=== PATIENT | male | born 1975 | race Caucasian/White ===

== ENCOUNTER 2024-08-14 09:39 | Inpatient (IN) | payer MEDICAID, OTHER ==
[~2024-08-14] VITALS: Ht 167.6 cm; Wt 60.6 kg
[~2024-08-14 09:39] MED LIST: FOLI1TAB27 PO; MULT-1179 PO; THI100T PO
--- NOTE | 2024-08-14 09:57 | ELECTROCARDIOGRAPH REPORT ---
[facility] Test Date: 2024-08-14 Test Time: 09:53:24 Pat Name: KELLEY SRIVASTAVA Department: EMERGENCY ROOM Room: Gender: M Team Leader Surgery: : 1975 Requested By: ROSEMARIE RATLIFF Order Number: [id number] Reading MD: Measurements Intervals [place] Rate: 93 P: 73 AL: 131 QRS: 48 QRSD: 94 T: -82 QT: 356 QTc: 443 Interpretive Statements Sinus rhythm LVH with secondary repolarization abnormality Baseline wander in lead(s) V6 Please click the below link to view image of tracing.
[2024-08-14 10:24] LABS: BASOPHILS # (AUTO) 0.1 X10'3 (0-0.2); BASOPHILS % (AUTO) 0.8 % (0-1); EOSINOPHILS # (AUTO) 0.3 X10'3 (0-0.9); EOSINOPHILS % (AUTO) 3.4 % (0-6); HEMATOCRIT 43.7 % (42.0-52.0); HEMOGLOBIN 14.7 g/dl (14.0-17.9); LYMPHOCYTES # (AUTO) 1.8 X10'3 (1.1-4.8); LYMPHOCYTES % (AUTO) 21.3 % (21-51); MEAN CORPUSCULAR HEMOGLOBIN 28.3 PG (27.0-31.0); MEAN CORPUSCULAR HGB CONC 33.5 g/dL (33.0-36.5); MEAN CORPUSCULAR VOLUME 84.5 FL (78-98); MEAN PLATELET VOLUME 7.4 FL (7.4-10.4); MONOCYTES # (AUTO) 0.7 X10'3 (0-0.9); MONOCYTES % (AUTO) 8.4 % (2-12); NEUTROPHILS # (AUTO) 5.5 X10'3 (1.8-7.7); NEUTROPHILS % (AUTO) 66.1 % (42-75); PLATELET COUNT 329 X10'3 (140-440); RED BLOOD COUNT 5.17 X10'6 (4.70-6.10); RED CELL DISTRIBUTION WIDTH 14.5 % (11.5-14.5); WHITE BLOOD COUNT 8.2 X10'3 (4.5-11.0)
--- NOTE | 2024-08-14 10:26 | RADIOLOGY REPORT ---
EXAM: DI CHEST,SINGLE VIEW HISTORY: CP COMPARISON: None TECHNIQUE: Portable upright AP view of the chest was performed. FINDINGS: No pneumothorax, consolidative infiltrates, or pulmonary edema. The heart is borderline enlarged. The re is moderate thoracic degenerative disc disease. There is mild lower thoracic dextroscoliosis. IMPRESSION: No acute intrathoracic process.
--- NOTE | 2024-08-14 10:41 | Physician Documentation ---
History of Present Illness ~ Chief Complaint: Hypertension Stated Complaint: HIGH BLOOD PRESSURE Time Seen by MD: 10:06 Primary Medical Doctor: [facility] Mode of Arrival: POV HPI 49-year-old male history of methamphetamine use presenting for chest pain. He reports waking with tightness in his chest and difficulty taking a deep breath. He is 8 days sober from methamphetamine use. He also reports his blood pressure is elevated is work. His symptoms are slowly improving in her nearly resolved at this time Medication Reconciliation Allergies: Coded Allergies: Sulfa (Sulfonamide Antibiotics) (Verified Allergy, Unknown, 08/23/16) Scheduled Folic Acid* (Folic Acid*), 2 MG PO DAILY Multivitamins,Therapeutic* (Theragran-M*), 1 EACH PO DAILY Thiamine Hcl (Thiamine Hcl), 100 MG PO DAILY Past Medical History Past Medical History: Asthma Past Surgical History: orthopedic surgeries Review of Systems All Other Systems at this time: Reviewed and Negative Constitutional: Denies: fever Physical Exam Vital Signs: RN Vital Signs have been reviewed: Yes, Temperature: 97.5, Heart Rate: 80, Respiratory Rate: 17, BP: 165/118, Pulse Oximetry: 99, Weight: 49.000 Physical Exam Well-appearing no distress resting comfortably in bed No JVD Moist mucous membranes Pulmonary clear to auscultation bilaterally Cardiac no murmur Abdomen is soft nontender Lower extremity no edema Awake alert oriented Progress Progress Note Labs independently interpreted show elevated troponin Consulted hospitalist who agrees with management plan and graciously accept for admission Results/Orders Reviewed/noted all lab results: Yes Results/Orders Orders - TERRELL MILLS MD Nitroglycerin Sublingual Tab (Nitrostat (08/14/24 10:50) Ringers Solution, Lacted (Lactated Ringe (08/14/24 10:50) Pt Inr (08/14/24 10:48) PTT (08/14/24 10:48) Heparin 10,000 Unit/Ml 1ml (Heparin 10,0 (08/14/24 10:50) Heparin 25,000 Unit/250ml Bag (Heparin 2 (08/14/24 10:50) Heparin 10,000 Unit/Ml 1ml (Heparin 10,0 (08/14/24 10:50) Page Hospitalist (08/14/24 10:48) Fill Out Med Reconciliation (08/14/24 10:48) Drug Screen, Urine (08/14/24 10:51) Completed Orders - TERRELL MILLS MD Aspirin 81mg Chew Tablet (Aspirin 81mg C (08/14/24 10:50) Vital Signs 08/14/24 08/14/24 09:51 10:16 Temp 97.5 Pulse 80 Resp 15 17 B/P (MAP) 165/118 Pulse Ox 99 Laboratory Tests Test 08/14/24 10:08 White Blood Count 8.2 Red Blood Count 5.17 Hemoglobin 14.7 Hematocrit 43.7 Mean Corpuscular Volume 84.5 Mean Corpuscular Hemoglobin 28.3 Mean Corpuscular Hemoglobin Concent 33.5 Red Cell Distribution Width 14.5 Platelet Count 329 Mean Platelet Volume 7.4 Neutrophils (%) (Auto) 66.1 Lymphocytes (%) (Auto) 21.3 Monocytes (%) (Auto) 8.4 Eosinophils (%) (Auto) 3.4 Basophils (%) (Auto) 0.8 Neutrophils # (Auto) 5.5 Lymphocytes # (Auto) 1.8 Monocytes # (Auto) 0.7 Eosinophils # (Auto) 0.3 Basophils # (Auto) 0.1 CBC Comment Sodium Level 142 Potassium Level 4.4 Chloride Level 105 Carbon Dioxide Level 30.1 Anion Gap 7 L Blood Urea Nitrogen 13 Creatinine 0.97 Estimated GFR/1.73 m2 82 BUN/Creatinine Ratio 13.4 Glucose Level 106 H Calcium Level 8.9 Troponin I High Sensitivity 105 *H Pro-B-Type Natriuretic Peptide 380 H Albumin 3.6 Chemistry Comments EKG/XRAY/CT/US/VASC/MRI EKG : Additional Comment EKG independently interpreted by myself time 9:53 a.m. indication chest pain lateral ST depressions normal sinus rhythm rate 93 normal axis left ventricular hypertrophy Heart Score: Heart Score Response (Comments) Value History Moderate Suspicious [address]-Deviation 2 Age 45-64 1 Risk Factors No known risk factors 0 Troponin 1-2 x's Normal limit 1 Total 5 Medical Decision Making Additional Information Acute coronary syndrome, pulmonary embolism, pneumonia Departure Disposition: ADMITTED INPATIENT Admitted to Inpatient Unit: to hospitalist Impression: Primary Impression: NSTEMI (non-ST elevated myocardial infarction) Referrals: NO PRIMARY CARE PROVIDER (PCP) Critical Care Note Total Time (mins): 30 Critical Care Note The very real possibility of a deterioration of this patient's condition required the highest level of my preparedness for sudden, emergent intervention. I provided critical care services, which included medication orders, frequent reevaluations of the patient's condition and response to treatment, ordering and reviewing test results, and discussing the case with various consultants. Excludes time spent performing separately billable procedures. The critical care time associated with the care of the patient was 30 minutes in the acute management of NSTEMI Signature Scribe Signature: pablo Attestation: TERRELL Mehta MD Aug 14, 2024 10:41
[2024-08-14 10:45] LABS: ALBUMIN 3.6 G/DL (3.4-5.0); ANION GAP 7 (8-16); BLOOD UREA NITROGEN 13 MG/DL (7-18); BUN/CREATININE RATIO 13.4 (10.0-20.0); CALCIUM 8.9 MG/DL (8.5-10.1); CHLORIDE 105 MMOL/L (99-107); CREATININE 0.97 MG/DL (0.60-1.10); GLUCOSE 106 MG/DL (70-104); POTASSIUM 4.4 MMOL/L (3.5-5.1); PRO BRAIN NATRIURETIC PEPTIDE 380 PG/ML (0-125); SODIUM 142 MMOL/L (135-145); TOTAL CARBON DIOXIDE 30.1 MMOL/L (24-32); eCRCL 63 ML/MIN; eGFR 82 ML/MIN
[2024-08-14] MEDS ORDERED: nitroGLYCERIN 0.4mg SUBLingual tab SL PRN ×3 (10:50→19:20)
[2024-08-14] MEDS ORDERED: HYDROcodone/acetaminophen 5mg/325mg tablet PO PRN (11:10)
[2024-08-14] MEDS ORDERED: bisacodyl 10mg suppository rectal RC PRN (11:10)
[2024-08-14] MEDS ORDERED: HYDROmorphone inj. 0.5 MG/0.5 ML DISP.SYRIN IV PRN (11:10)
[2024-08-14] MEDS ORDERED: magnesium Cl slow-release 64mg tablet PO PRN (11:10)
[2024-08-14] MEDS ORDERED: ondansetron/PF 4mg/2ml inj IV PRN (11:10)
[2024-08-14] MEDS ORDERED: potassium Cl 40MEQ/1/2NS 520ml 520 ML IV PRN (11:10)
[2024-08-14] MEDS ORDERED: morphine 2 MG/ML inj. syringe IV PRN (11:10)
[2024-08-14] MEDS ORDERED: magnesium sulf-water 4G/100mL 100 ML IV PRN (11:10)
[2024-08-14] MEDS ORDERED: acetaminophen 325mg tablet PO PRN (11:10)
[2024-08-14] MEDS ORDERED: potassium Cl 20 mEq SR tablet PO PRN ×2 (11:10)
[2024-08-14] MEDS ORDERED: HYDROmorphone/PF 0.2 MG/ML SYRINGE IV PRN (11:10)
[2024-08-14] MEDS ORDERED: mag hydrox/Alum hydrox/simeth 30ml oral suspension PO PRN (11:10)
[2024-08-14] MEDS ORDERED: HYDROcodone/acetaminophen 10/325mg tab PO PRN (11:10)
[2024-08-14] MEDS ORDERED: magnesium hydroxide 30ml (MOM) UD suspension PO PRN (11:10)
[2024-08-14] MEDS ORDERED: magnesium sulf-water 2g/50mL 50 ML IV PRN (11:10)
[2024-08-14] MEDS: aspirin 81mg tab.chew PO ONE (11:24)
[2024-08-14] MEDS: ringers solution, lacted 1,000 ML IV ONE (11:24)
[2024-08-14] MEDS: labetalol 20mg/4ml (5mg/ml) syringe IV ONE (11:26)
[2024-08-14] MEDS: MESSAGE TO NURSING IV ONE ×2 (11:40→20:44)
[2024-08-14 11:45] LABS: APTT 26 SECONDS (22-32); PROTHROMBIN TIME 9.8 SECONDS (9.0-12.0)
[2024-08-14] MEDS: heparin 25,000 UNIT/250ml bag 250 ML IV PRN (11:48)
[2024-08-14] MEDS: heparin 10,000 units/1 ML INJ IV ONE (11:51)
[2024-08-14 11:53] LABS: HEMOGLOBIN A1C 5.2 % (4.5-6.2)
--- NOTE | 2024-08-14 12:30 | CONSULTATION REPORT ---
History of Present Illness Providers to CC CC: LAN SEQUEIRA MD ~ Reason for Admit\Admit Dx: Cardiology consultation Refering MD: JEAN History of Present Illness This is a 49-year-old male who presents secondary to chest pain. Patient reports chest tightness in the center of his chest starting at 9:00 a.m. that was nonradiating. Describes shortness for breath when he ambulated to the hospital which is unusual for him. Blood pressure running high. Reports regular methamphetamine use usually by smoking it. He was using regularly till about two weeks ago when he went into a rehabilitation program. Last use was about seven days ago. Reports IV use in the past. Denies any past cardiac history. EKG was read as ST depression and cardiology consultation was requested secondary to ST depression and minimally elevated troponins. Allergies: Coded Allergies: Sulfa (Sulfonamide Antibiotics) (Verified Allergy, Unknown, 08/23/16) Home Medications Home Medications Active Theragran-M* (Multivitamins Therapeutic) 1 Each Tablet 1 Each PO DAILY Thiamine Hcl 100 Mg Tablet 100 Mg PO DAILY Folic Acid 1 Mg Tablet 2 Mg PO DAILY Past Medical History Medical History Comment Asthma Past Surgical History Surgical History Comment Orthopedic Past Family History Family History Comment Both his mother and father had hypertension. Reports siblings are healthy. Unknown if any [place] family history. Thinks mother had congestive heart failure. Past Social History Social History Comment History of tobacco use from age [age]. History of meth use. History of IV meth use in the past with the last IV use one year ago. History of alcohol use. In the past he drank up to three shots per day. Physical Exam Last Vital Signs Recorded: RN Vital Signs have been reviewed: Yes, Temperature: 97.5, Heart Rate: 80, Respiratory Rate: 17, BP: 165/118, Pulse Oximetry: 99, Weight: 49.000 Physical Exam General: Awake, alert, oriented. No apparent distress Neck: Supple. Normal range of motion. No JVD Respiratory: Lungs are clear to auscultation bilaterally. No respiratory distress. Chest: Normal shape and size. No accessory muscle use. Cardiovascular: Regular rate and rhythm. S1-S2. No murmur, gallop, rub. Gastrointestinal: Abdomen is soft. Nontender to palpation. Bowel sounds present. Extremities: No lower extremity edema, cyanosis or clubbing. Neurologic: Alert and oriented x4. Nonfocal Psychiatric: Normal mood and affect. Skin: Normal color. Warm and dry. Review of Systems ROS Review of systems negative except documented in HPI. Results EKG EKG Sinus rhythm rate of 93. LVH with repolarization abnormalities causing ST depression. Diagram Lab Result Diagram: 08/14/24 1008 08/14/24 1008 Assessment/Plan Additional Plan This is a 49-year-old male who presented with chest pain. The following is his problem list: Chest pain Minimally elevated troponin with possible NSTEMI. --needs echocardiogram to assess LV function and LV wall thickness --trend troponins --heparin for 48 hours --aspirin 81 mg daily --start beta-yamini --check lipids. Statin to keep LDL less than 55 Hypertension Not on medications --consider addition of lisinopril if blood pressure remains elevated Methamphetamine use disorder Risks of methamphetamine use reviewed in detail. Encouraged to quit. Consultation was requested secondary to ST depression and minimally elevated troponins. EKG has ST depression that is caused from repolarization abnormality with LVH. Please see above. Case discussed with Dr. Sequeira. Supervising MD Supervising Physician: DAYRON Campbell NP Aug 14, 2024 12:30
[2024-08-14 12:42] LABS: BILIRUBIN,URINE NEGATIVE (Neg); CLARITY,URINE CLEAR (Clear); COLOR,URINE YELLOW (Yellow); GLUCOSE, URINE NEGATIVE (Neg); KETONES,URINE NEGATIVE (Neg); LEUKOCYTE ESTERASE ,URINE NEGATIVE (Neg); NITRITES, URINE NEGATIVE (Neg); OCCULT BLOOD,URINE NEGATIVE (Neg); PH,URINE 6.5 (4.8-8.0); PROTEIN,URINE NEGATIVE (Neg); UROBILINOGEN,URINE 0.2 E.U/dL (0.2-1.0)
[2024-08-14 12:49] LABS: UA COLLECTION TYPE CLN CATCH MIDSTREAM
[2024-08-14 12:51] LABS: URINE AMPHETAMINE SCREEN NEGATIVE (Neg); URINE BARBITUATE SCREEN NEGATIVE (Neg); URINE BENZODIAZEPINES SCREEN NEGATIVE (Neg); URINE CANNABINOID SCREEN POSITIVE (Neg); URINE COCAINE SCREEN NEGATIVE (Neg); URINE METHADONE SCREEN NEGATIVE (Neg); URINE OPIATE SCREEN NEGATIVE (Neg); URINE PHENCYCLIDINE SCREEN NEGATIVE (Neg)
[2024-08-14] MEDS ORDERED: NO HOME MEDS (13:41)
[2024-08-14 14:15] VITALS: BP 141/93; PULSE 68; RESP 16; TEMP 97.9; O2SAT 99
[2024-08-14 18:00] VITALS: BP 132/87; PULSE 70; RESP 20; TEMP 98.6; O2SAT 98
--- NOTE | 2024-08-14 19:15 | HISTORY AND PHYSICAL-Residence ---
History & Physical Providers to CC Resident Creating Document: JULIETTE BARRAGAN, RES ~ History of Present Illness Primary Medical Doctor: [facility] Reason for Admit\Complaint: Chest pain History of Present Illness This is a 49-year-old male with a history of methamphetamine abuse last use eight days ago, asthma, hypertension presents to the ED with a chief complaint of tightness in the chest. Patient mentions that his chest pain is in the sternal area, nonradiating, started in the morning is associated with shortness of Breath. He denies any orthopnea, PND, palpitations, syncopal episodes. He denies any history of heart failure does not follow mechanical design technician. ED course: EKG shows sinus rhythm with repolarization abnormalities suggestive of LVH, ST-depression in lateral leads V5 V6. He received IV labetalol 20 mg in one LR, 324 mg aspirin and nitroglycerin. He was also started on heparin drip for NSTEMI Allergies: Coded Allergies: Sulfa (Sulfonamide Antibiotics) (Verified Allergy, Unknown, 08/23/16) Home Medications Home Medications Active Reported No Home Medications (Home Med List) Each Past Medical History Past Medical History Asthma Past Surgical History Surgical History Comment Orthopedic surgeries Family History Family History: FH: cancer MOTHER, FH: hypertension FATHER, , Cause: Head injury Past Social History Social History Comment Family history significant for high blood pressure in mother and father. Denies history of heart attacks in family. CHF in mother Smoked for about 10 years. History of both IV and smoking methamphetamine in the past. Drinks alcohol up to three shots per day but quit now. ROS All Other Systems: Reviewed and Negative ROS Reviewed and negative except for the pertinent positives in HPI Constitutional: Denies: fever Exam Vitals: Vital Signs Date Time Temp Pulse Resp B/P (MAP) Pulse Ox O2 Delivery O2 Flow Rate FiO2 08/14/24 14:21 59 08/14/24 14:15 97.9 16 141/93 (109) 99 Room Air 08/14/24 13:26 0 General: General: Awake, alert, oriented. No apparent distress Neck: Supple. Normal range of motion. No JVD Respiratory: Lungs are clear to auscultation bilaterally. No respiratory distress. Chest: Normal shape and size. No accessory muscle use. Cardiovascular: Regular rate and rhythm. S1-S2. No murmur, gallop, rub. Gastrointestinal: Abdomen is soft. Nontender to palpation. Bowel sounds present. Extremities: No lower extremity edema, cyanosis or clubbing. Neurologic: Alert and oriented x4. Nonfocal Psychiatric: Normal mood and affect. Skin: Normal color. Warm and dry. Diagnostic Data Last Recorded Lab Results: 08/14/24 1008 08/14/24 1008 Diagnostic Data: Laboratory Tests Test 08/14/24 10:08 08/14/24 18:03 Prothrombin Time 9.8 SECONDS (9.0-12.0) INR International Normalized Ratio 1.0 INR Activated Partial Thromboplast Time 26 SECONDS (22-32) Coagulation Comments Advance Care Planning Advanced Care plannin - 30 Minutes (I spent a total of 17 minutes on reviewing various resuscitative measures/ ACP with the patient at the time of admission. The patient has decided on a full code status) Additional Plan Hypertensive emergency Type 2 DE Can not rule out NSTEMI Patient had a blood pressure of 195/116 mmHg for EMS. EKG shows ST depressions in V5 V6, per cardiology this is likely secondary to uncontrolled hypertension and LVH. Serial troponins are 105, 89, 92. Chest pain is likely secondary to hypertensive emergency. Heart score is elevated at five. Patient may however benefit from a stress test. NPO after midnight. Lexiscan in the a.m. Continue heparin drip for 48 hours per Cardiology. Continue aspirin 81 mg, metoprolol 25 mg, atorvastatin 40 mg. Follow up with lipid panel, goal LDL less than 55. Started on lisinopril 20 mg to control blood pressure. Follow up with the echocardiogram given history of IV drug abuse for infective endocarditis, EF given methamphetamine use History of methamphetamine abuse Last use was eight days ago. U tox is positive for only cannabis, negative for amphetamines. Substance use navigator and child welfare social worker consulted. Code Status: Full code DVT Prophylaxis: Heparin drip Analgesia/Sedation: Tylenol p.r.n. Lines/Tubes: PIV Gi Prophylaxis: None Nutrition: Heart healthy diet, NPO after midnight PT: Yes Prognosis: Guarded Disposition: Juliette Marcus MD Internal Medicine Resident PGY-1 Date of Service: Aug 14, 2024 Billing Provider: REAGAN MARLEY MD,JULIETTE MARCUS, RES Aug 14, 2024 19:15
[2024-08-14] MEDS ORDERED: metoprolol tartrate 1mg/ml inj IV PRN (19:20)
[2024-08-14] MEDS ORDERED: aminophylline 500mg/20ml vial IV PRN (19:20)
[2024-08-14 20:00] VITALS: RESP 20; O2SAT 98
[2024-08-14] MEDS: K and/or MAG REPLACEMENT MC SCH (20:00)
[2024-08-14] MEDS: docusate sod 100mg capsule PO SCH (20:31)
[2024-08-14] MEDS: atorvastatin 20mg tablet PO SCH (20:32)
[2024-08-14] MEDS: metoprolol succinate 25mg (24-HOUR) SR. Tablet PO SCH (20:32)
[2024-08-14] MEDS: lisinopril 20mg tablet PO SCH (20:34)
[2024-08-14] MEDS: heparin 10,000 units/1 ML INJ IV PRN (20:38)
[2024-08-14] MEDS: aspirin 81mg, enteric-coated 1 TAB TABLET.DR PO SCH (20:40)
[2024-08-14 22:00] VITALS: BP 144/98; PULSE 81; RESP 21; TEMP 97.5; O2SAT 99
[2024-08-15] VITALS (14 sets, daily range): BP systolic 104–139; BP diastolic 63–86; PULSE 51–99; RESP 16–23; TEMP 97.3–98.6; O2SAT 95–99
[2024-08-15 03:18] LABS: BASOPHILS # (AUTO) 0.1 X10'3 (0-0.2); BASOPHILS % (AUTO) 0.9 % (0-1); EOSINOPHILS # (AUTO) 0.4 X10'3 (0-0.9); EOSINOPHILS % (AUTO) 6.7 % (0-6); HEMATOCRIT 44.2 % (42.0-52.0); HEMOGLOBIN 14.8 g/dl (14.0-17.9); LYMPHOCYTES # (AUTO) 1.8 X10'3 (1.1-4.8); LYMPHOCYTES % (AUTO) 27.1 % (21-51); MEAN CORPUSCULAR HEMOGLOBIN 28.4 PG (27.0-31.0); MEAN CORPUSCULAR HGB CONC 33.4 g/dL (33.0-36.5); MEAN CORPUSCULAR VOLUME 85.1 FL (78-98); MEAN PLATELET VOLUME 7.7 FL (7.4-10.4); MONOCYTES # (AUTO) 0.5 X10'3 (0-0.9); MONOCYTES % (AUTO) 7.4 % (2-12); NEUTROPHILS # (AUTO) 3.8 X10'3 (1.8-7.7); NEUTROPHILS % (AUTO) 57.9 % (42-75); PLATELET COUNT 302 X10'3 (140-440); RED BLOOD COUNT 5.19 X10'6 (4.70-6.10); RED CELL DISTRIBUTION WIDTH 14.7 % (11.5-14.5); WHITE BLOOD COUNT 6.6 X10'3 (4.5-11.0)
[2024-08-15 03:37] LABS: ALANINE AMINOTRANSFERASE 33 U/L (12-78); ALBUMIN 3.6 G/DL (3.4-5.0); ALKALINE PHOSPHATASE 64 IU/L (46-116); ANION GAP 6 (8-16); ASPARTATE AMINO TRANSFERASE 21 U/L (10-37); BILIRUBIN,TOTAL 0.5 MG/DL (0.1-1.0); BLOOD UREA NITROGEN 13 MG/DL (7-18); BUN/CREATININE RATIO 15.3 (10.0-20.0); CALCIUM 9.3 MG/DL (8.5-10.1); CHLORIDE 105 MMOL/L (99-107); CHOLESTEROL 232 MG/DL (0-200); CREATININE 0.85 MG/DL (0.60-1.10); GLUCOSE 92 MG/DL (70-104); HDL CHOLESTEROL 78 MG/DL (35-60); LDL CHOLESTEROL 131 MG/DL (50-100); MAGNESIUM 2.2 MG/DL (1.5-2.4); POTASSIUM 4.3 MMOL/L (3.5-5.1); SODIUM 142 MMOL/L (135-145); TOTAL CARBON DIOXIDE 30.7 MMOL/L (24-32); TOTAL PROTEIN 7.2 G/DL (6.4-8.2); TRIGLYCERIDES 61 MG/DL (20-135); eCRCL 89 ML/MIN; eGFR > 90 ML/MIN
[2024-08-15] MEDS: MESSAGE TO NURSING IV ONE ×2 (04:06→08:47)
[2024-08-15] MEDS: regadenoson 0.4mg/5ml syringe IV PRN (10:48)
--- NOTE | 2024-08-15 12:27 | RADIOLOGY REPORT ---
EXAM: NM NM JOSEPH SCAN History: Chest pain, NSTEMI Comparison Study: None TECHNIQUE: Resting myocardial perfusion imaging was performed approximately 30 minutes following the injection of 8.21 mCi of Tc-99m sestamibi. Peak pharmacologic stress, the patient was injected with 3 2.05 mCi of Tc-99m sestamibi. Gated post stress images were acquired in the supine and prone position s approximately 30 minutes after stress and left ventricular ejection fraction (LVEF) was calculated. Findings: The overall quality of the study is adequate. The left ventricular cavity is noted to be enlarged. There is no evidence of abnormal lung activity. Additionally, the right ventricle appears normal. Myocardial perfusion images demonstrate a small size, moderate intensity perfusion defect in the apex which is reversible. Gated imaging reveals globally hypokinetic wall motion with a calculated decreased LVEF of 24 % with end-diastolic volume of 193 mL at stress. Impression: 1. Small size, moderate intensity reversible perfusion defect in the apex favored ischemic. No evide nce of infarct. 2. Overall gated left ventricular systolic function was globally hypokinetic with calculated decrease d LVEF of 24 % at stress. 3. Enlarged left ventricle.
--- NOTE | 2024-08-15 15:01 | PROGRESS NOTE- Residence ---
Progress Note - Resident Providers to CC Resident Creating Document: YUNGJULIETTE MARCUS, STEPHEN ~ Antibiotic Timeout Antibiotic Ordered?: No Subjective Patient was seen and examined at the bedside. He denies any chest pain or shortness of Breath today. He underwent stress test which shows a reversible ischemic defect. Cardiology consulted, awaiting recommendations, no plan for cardiac catheterization today. NPO after midnight. Patient also had social work job titles consult and is interested in calling [facility] for substance abuse Objective Vital Signs Date Time Temp Pulse Resp B/P (MAP) Pulse Ox O2 Delivery O2 Flow Rate FiO2 08/15/24 11:01 74 18 121/77 97 Room Air 08/15/24 11:00 97.9 08/14/24 13:26 0 Result Diagram: 08/15/24 0250 08/15/24 0250 General: Awake, alert, oriented. No apparent distress Neck: Supple. Normal range of motion. No JVD Respiratory: Lungs are clear to auscultation bilaterally. No respiratory distress. Chest: Normal shape and size. No accessory muscle use. Cardiovascular: Regular rate and rhythm. S1-S2. No murmur, gallop, rub. Gastrointestinal: Abdomen is soft. Nontender to palpation. Bowel sounds present. Extremities: No lower extremity edema, cyanosis or clubbing. Neurologic: Alert and oriented x4. Nonfocal Psychiatric: Normal mood and affect. Skin: Normal color. Warm and dry. Coagulation Studies Laboratory Tests Test 08/14/24 10:08 08/15/24 14:23 Prothrombin Time 9.8 SECONDS (9.0-12.0) INR International Normalized Ratio 1.0 INR Activated Partial Thromboplast Time 26 SECONDS (22-32) Coagulation Comments Assessment Assessment This is a 49-year-old male with a history of methamphetamine abuse last use eight days ago, asthma, hypertension presents to the ED with a chief complaint of tightness in the chest. Patient mentions that his chest pain is in the sternal area, nonradiating, started in the morning is associated with shortness of Breath. He denies any orthopnea, PND, palpitations, syncopal episodes. He denies any history of heart failure does not follow security officers and guards. ED course: EKG shows sinus rhythm with repolarization abnormalities suggestive of LVH, ST-depression in lateral leads V5 V6. He received IV labetalol 20 mg in one LR, 324 mg aspirin and nitroglycerin. He was also started on heparin drip for NSTEMI Plan Plan NSTEMI New onset CHF with severely reduced ejection fraction Patient had a blood pressure of 195/116 mmHg for EMS before arrival. EKG shows ST depressions in V5 V6, per cardiology this is likely secondary to uncontrolled hypertension and LVH. Serial troponins are 105, 89, 92. Heart score is elevated at five. Continue heparin drip for 48 hours per Cardiology. Continue aspirin 81 mg, metoprolol 25 mg, atorvastatin 40 mg. Lipid panel shows cholesterol 232, LDL 131, goal LDL less than 55. Echocardiogram shows severely reduced systolic ejection function with EF 25-30 % Stress stents was done today which shows 1. Small size, moderate intensity reversible perfusion defect in the apex favored ischemic. No evidence of infarct. 2. Overall gated left ventricular systolic function was globally hypokinetic with calculated decreased LVEF of 24 % at stress. 3. Enlarged left ventricle. Started on GDMT with Entresto, Jardiance, spironolactone, metoprolol History of methamphetamine abuse Last use was eight days ago. U tox is positive for only cannabis, negative for amphetamines. Substance use navigator and social work job titles consulted. Patient is intrested in [facility]. Code Status: Full code DVT Prophylaxis: Heparin drip Analgesia/Sedation: Tylenol p.r.n. Lines/Tubes: PIV Gi Prophylaxis: None Nutrition: Heart healthy diet, NPO after midnight PT: Yes Prognosis: Guarded Disposition: Pending cardiology recommendations. Juliette Marcus MD Internal Medicine Resident PGY-1 Date of Service: Aug 15, 2024 Billing Provider: REAGAN MARLEY MD,JULIETTE MARCUS, RES Aug 15, 2024 15:01
--- NOTE | 2024-08-15 15:55 | PROGRESS NOTE ---
Progress Note Cardiology Providers to CC CC: BARBER SEQUEIRA MD ~ Subjective Subjective This is a 49-year-old male who presents secondary to chest pain. Patient reports chest tightness in the center of his chest starting at 9:00 a.m. that was nonradiating. Describes shortness for breath when he ambulated to the hospital which is unusual for him. Blood pressure running high. Reports regular methamphetamine use usually by smoking it. He was using regularly till about two weeks ago when he went into a rehabilitation program. Last use was about seven days ago. Reports IV use in the past. Denies any past cardiac history. Objective Result Diagram: 08/15/24 0250 08/15/24 0250 Objective Pt. is not having active chest discomfort, tightness or SOB. On heparin. Discussed results of the stress test with him, including DAPT compliance if we were to proceed with cath and revascularization. Coagulation Studies Laboratory Tests Test 08/14/24 10:08 08/15/24 14:23 Prothrombin Time 9.8 SECONDS (9.0-12.0) INR International Normalized Ratio 1.0 INR Activated Partial Thromboplast Time 26 SECONDS (22-32) APTT (Heparin Protocol) 35 SECONDS (45-60) L Coagulation Comments Other Results Nuclear Stress Test Impression: 1. Small size, moderate intensity reversible perfusion defect in the apex favored ischemic. No evidence of infarct. 2. Overall gated left ventricular systolic function was globally hypokinetic with calculated decreased LVEF of 24 % at stress. 3. Enlarged left ventricle. Problem\Assessment\Plan Problems/Diagnosis: (1) NSTEMI (non-ST elevated myocardial infarction) Assessment & Plan: --echo pending. LVEF per NUC 24% with global hypokinesis. May require GDMT for HFrEF. --troponin trending down --continue aspirin 81 mg daily --continue Metoprolol Succinate 25mg --continue Atorvastatin 40mg Discussed treatment options with patient, medical therapy versus cardiac catheterization with possible revascularization. Concern for compliance with DAPT in the event of PCI. He states he is doing well in his sober living program, and that he could be compliant with medications if not cost- prohibitive. Given his housing insecurity, past struggles with addiction, and current lack of symptoms, recommend medical therapy and outpatient follow-up. If he is still committed after discharge, catheterization/revascularization can be arranged as an outpatient. The patient agrees with this plan, as he states it will help hold him accountable to sobriety after he is discharged. Discharge per Hospitalist Service, follow up as outpatient with Dr. Sequeira within 14 days. --D/C Heparin drip Case discussed with supervising physician, Dr. Leidy Sequeira who is in agreement with this plan. Supervising Physician: DEVIN [facility] Aug 15, 2024 15:55
[2024-08-15] MEDS: EMPAGLIFLOZIN 10 MG TABLET PO SCH (15:57)
[2024-08-15] MEDS: spironolactone 25 MG tablet PO SCH (15:59)
[2024-08-15] MEDS: sacubitril/valsartan 24mg-26mg tablet PO SCH (15:59)
--- NOTE | 2024-08-15 17:36 | CARDIOLOGY REPORT ---
APPROVED REPORT EXAM: Comprehensive 2D, Doppler, and color-flow Echocardiogram. 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 96.5 cm/s AoV VTI 19.5 cm AO Peak GR. 3.7 mmHg AO Mean GR. 2 mmHg LVOT VTI 15.84 cm LVOT Peak Enzo. 89.7 cm/s SRINIVAS(VTI)/BSA 3.63 cm2/m2 SRINIVAS (VTI) 3.63 cm2 Mitral Valve MV E Velocity 67.2 cm/s MV Peak Gr. 2 mmHg MV DECEL TIME 272 ms MV A Velocity 51.8 cm/s MV PHT 68 ms E/A Ratio 1.3 MVA (PHT) 3.24 cm2 MV VMax71.0 cm/s TDI Lateral E' P. V8.37 cm/s E/Lateral E' 8.0 Pulmonary Vein S1 Velocity 43.7 cm/s D2 Velocity 41.6 cm/s PVa Wxycciih69.4 cm/s PVa [id number] msec LEFT VENTRICLE Moderately dilated LV size with normal wall thickness. Overall systolic function is severely reduced. LVEF is 25-30%. RIGHT VENTRICLE RV is midly dilated in size with normal function. ATRIA Left atrium is mildly dilated. AORTIC VALVE Trileaflet AV appears mildly sclerotic without stenosis. Trivial insufficiency. MITRAL VALVE MV annular calcification & thickened leaflets without stenosis. Trace regurgitation. TRICUSPID VALVE TV appears structurally normal with trace regurgitation. PULMONIC VALVE Normal PV without stenosis, no insufficiency. GREAT VESSELS The aortic root is normal in size. IVC is normal in size and collapses greater than 50% with inspirat ion. PERICARDIUM Normal pericardium. No effusion. Other Information Study Quality: Adequate Conclusion Moderately dilated LV size with normal wall thickness. Overall systolic function is severely reduced. LVEF is 25-30%. RV is midly dilated in size with normal function. Left atrium is mildly dilated. Trileaflet AV appears mildly sclerotic without stenosis. Trivial insufficiency. MV annular calcification & thickened leaflets without stenosis. Trace regurgitation. TV appears structurally normal with trace regurgitation. Normal pericardium. No effusion.
[2024-08-15] MEDS: Melatonin 3mg tablet PO SCH (23:05)
[2024-08-16 02:00] VITALS: BP 116/74; PULSE 66; RESP 16; TEMP 97.3; O2SAT 96
[2024-08-16 06:00] VITALS: BP 113/65; PULSE 52; RESP 22; TEMP 97.4; O2SAT 99
[2024-08-16 06:48] LABS: ALANINE AMINOTRANSFERASE 27 U/L (12-78); ALBUMIN 3.6 G/DL (3.4-5.0); ALBUMIN/GLOBULIN RATIO 1.1 (1.1-1.5); ALKALINE PHOSPHATASE 64 IU/L (46-116); ANION GAP 8 (8-16); ASPARTATE AMINO TRANSFERASE 15 U/L (10-37); BILIRUBIN,TOTAL 0.4 MG/DL (0.1-1.0); BLOOD UREA NITROGEN 14 MG/DL (7-18); BUN/CREATININE RATIO 15.9 (10.0-20.0); CALCIUM 9.3 MG/DL (8.5-10.1); CHLORIDE 102 MMOL/L (99-107); CREATININE 0.88 MG/DL (0.60-1.10); GLUCOSE 103 MG/DL (70-104); MAGNESIUM 2.2 MG/DL (1.5-2.4); POTASSIUM 4.4 MMOL/L (3.5-5.1); SODIUM 138 MMOL/L (135-145); TOTAL CARBON DIOXIDE 27.8 MMOL/L (24-32); eCRCL 86 ML/MIN; eGFR > 90 ML/MIN
[2024-08-16 06:50] LABS: BASOPHILS # (AUTO) 0.1 X10'3 (0-0.2)
[2024-08-16 06:53] LABS: RED BLOOD COUNT 5.56 X10'6 (4.70-6.10); WHITE BLOOD COUNT 8.6 X10'3 (4.5-11.0)
[2024-08-16 06:54] LABS: EOSINOPHILS % (AUTO) 4.6 % (0-6); HEMATOCRIT 46.6 % (42.0-52.0); HEMOGLOBIN 15.4 g/dl (14.0-17.9); LYMPHOCYTES % (AUTO) 18.4 % (21-51); MEAN CORPUSCULAR HEMOGLOBIN 27.7 PG (27.0-31.0); MEAN CORPUSCULAR HGB CONC 33.1 g/dL (33.0-36.5); MEAN CORPUSCULAR VOLUME 83.8 FL (78-98); MONOCYTES % (AUTO) 8.1 % (2-12); NEUTROPHILS % (AUTO) 67.8 % (42-75); PLATELET COUNT 298 X10'3 (140-440); RED CELL DISTRIBUTION WIDTH 14.1 % (11.5-14.5)
[2024-08-16 06:55] LABS: BASOPHILS % (AUTO) 1.1 % (0-1); EOSINOPHILS # (AUTO) 0.4 X10'3 (0-0.9); LYMPHOCYTES # (AUTO) 1.6 X10'3 (1.1-4.8); MONOCYTES # (AUTO) 0.7 X10'3 (0-0.9); NEUTROPHILS # (AUTO) 5.9 X10'3 (1.8-7.7)
[2024-08-16 08:00] VITALS: RESP 22; O2SAT 99
[2024-08-16 11:00] VITALS: BP 111/65; PULSE 67; RESP 15; TEMP 97.9; O2SAT 95
[2024-08-16] MEDS ORDERED: METO-395 PO (12:39)
[2024-08-16] MEDS ORDERED: ATOR20TA66 PO (12:39)
[2024-08-16] MEDS ORDERED: NITR0.4T51 SL (12:39)
[2024-08-16] MEDS ORDERED: SPIR25TA PO (12:39)
[2024-08-16] MEDS ORDERED: EMPA10TA PO (12:39)
[2024-08-16] MEDS ORDERED: ASPI-1071 PO (12:39)
[2024-08-16] MEDS ORDERED: SACU1TAB PO (13:49)
== END 2024-08-16 14:41 | disposition home or self-care (01) | DRG 199 ==
LOC: ER 09:40 → ED HOLD 11:11 → PCU 3S 13:55
PROVIDERS: ADMIT Family Medicine; ATTEND Family Medicine
PROC: 4A02XM4 Measurement of Cardiac Total Activity, External Approach (ICD-10-PCS; principal; 2024-08-15)
PROC: 3E033HZ Introduction of Radioactive Substance into Peripheral Vein, Percutaneous Approach (ICD-10-PCS; 2024-08-15)
DX: I16.1 Hypertensive emergency (principal); I21.A1 Myocardial infarction type 2; I50.20 Unspecified systolic (congestive) heart failure; J45.909 Unspecified asthma, uncomplicated; I11.0 Hypertensive heart disease with heart failure; F15.10 Other stimulant abuse, uncomplicated; Z79.899 Other long term (current) drug therapy; Z87.891 Personal history of nicotine dependence; Z88.2 Allergy status to sulfonamides
CPT/HCPCS: 36415; 71045; 78452; 80048; 80053; 80061; 80305; 81003; 83036; 83735; 83880; 84484; 85025; 85610; 85730; 87081; 93005; 93017; 93306; 96365; 99291; A9500; G0378; J1644; J2785; J3490; J7120